=== PATIENT | female | born 1965 | race American Indian/Alaskan Native ===

== ENCOUNTER 2016-12-15 17:36 | Emergency (ER) | payer BC ==
--- NOTE | 2016-12-15 18:39 | Emergency Department Report ---
Chief Complaint: High BP Stated Complaint: HIGH BLOOD PRESSURE Time Seen by Provider: 12/15/16 18:35 - HPI History of Present Illness: PT states she has been out of her bp medication for 1 week. PT states she had a headache today with elevated bp. PT states she is feeling better now. - ROS Review of Systems: + headache + frontal - Exam Vital Signs: Vital Signs 12/15/16 18:33 Temperature 98.5 F Pulse Rate 82 Respiratory 16 Rate Blood Pressure 125/86 O2 Sat by Pulse 97 Oximetry Physical Exam: gcs 15 steady gait MSE screening note: Focused history and physical exam performed. Due to findings the following was ordered: labs, ct ED Disposition for MSE Condition: Stable
[2016-12-15 19:10] LABS: Anion Gap 17 mmol/L; BUN/Creatinine Ratio 14.44; Blood Urea Nitrogen 13 mg/dL (7-17); Calcium 9.3 mg/dL (8.4-10.2); Carbon Dioxide 25 mmol/L (22-30); Chloride 101.5 mmol/L (98-107); Glucose 84 mg/dL (65-100); Potassium 4.3 mmol/L (3.6-5.0); Sodium 139 mmol/L (137-145)
[2016-12-15 19:35] LABS: Basophils % (Auto) 0.5 % (0.0-1.8); Eosinophils % (Auto) 1.3 % (0.0-4.3); Hemoglobin 13.3 gm/dl (10.1-14.3); Mean Corpuscular HGB Conc 33 % (30-34); Mean Corpuscular Hemoglobin 30 pg (28-32); Mean Corpuscular Volume 92 fl (79-97); Platelet Count 177 K/mm3 (140-440); Red Blood Count 4.37 M/mm3 (3.65-5.03); Red Cell Distribution Width 13.3 % (13.2-15.2); White Blood Count 5.2 K/mm3 (4.5-11.0)
--- NOTE | 2016-12-15 19:49 | Cat Scan Report ---
FINAL REPORT EXAM: CT HEAD/BRAIN WO CON HISTORY: headache, htn TECHNIQUE: Noncontrast CT axial images of the brain. PRIORS: None. FINDINGS: No parenchymal mass, mass effect, hemorrhage, midline shift or hydrocephalus. No evidence of acute cortical infarct. No abnormal, extra-axial fluid or air collection. Osseous calvarium grossly intact. IMPRESSION: 1. No acute intracranial findings.
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
[2016-12-16 02:59] VITALS: BP 150/101
== END 2016-12-16 01:50 | disposition home or self-care (01) ==
LOC: ED 17:36
DX: I10 Essential (primary) hypertension (principal); J45.909 Unspecified asthma, uncomplicated; F17.200 Nicotine dependence, unspecified, uncomplicated
CPT/HCPCS: 36415; 70450; 80048; 85025